=== PATIENT | female | born 1995 | race Two or more races ===

== ENCOUNTER 2018-11-18 21:16 | Emergency (ER) | payer OTHER ==
[~2018-11-18] VITALS: Ht 160 cm; Wt 52.2 kg
[2018-11-19] MEDS ORDERED: DICLOFENAC SOD100 MG PO (01:23)
[2018-11-19] MEDS ORDERED: PREDNISONE20 MG PO (01:23)
[2018-11-19] MEDS ORDERED: PERCOCET 5-3251 EACH PO (01:23)
[2018-11-19] MEDS ORDERED: VISTARIL25 MG PO (01:23)
== END 2018-11-19 02:02 | disposition home or self-care (01) ==
LOC: ER 21:16
DX: M26.69 Other specified disorders of temporomandibular joint (principal)